=== PATIENT | female | born 1985 | race Caucasian/White ===

== ENCOUNTER 2018-01-18 02:03 | Emergency (ER) | payer BC ==
[2018-01-18] MEDS ORDERED: HYDROcodone/Acetaminophen 10/325 mg Tablet ONE (02:41)
== END 2018-01-18 02:45 | disposition home or self-care (01) ==
LOC: ERS 02:03
DX: K02.9 Dental caries, unspecified (principal); Z79.84 Long term (current) use of oral hypoglycemic drugs
CPT/HCPCS: 99282

== ENCOUNTER 2018-02-13 22:13 | Emergency (ER) | payer BC ==
[2018-02-13 22:58] LABS: #Eosinphils 0.2 thou/uL (0.0-0.7); #Lymphocytes 2.1 thou/uL (1.20-3.40); #Monocytes 0.7 thou/uL (0.11-0.59); #Neutrophils 7.7 thou/uL (1.40-6.50); %Basophils 0.4 % (0.0-1.0); %Eosinophils 1.7 % (0.0-10.0); %Lymphocytes 19.3 % (21.0-51.0); %Monocytes 6.9 % (0.0-10.0); %Neutrophils 71.7 % (42.0-75.0); Hemoglobin 12.8 g/dL (12.0-16.0); Mean Corpuscular HGB CONC 34.1 g/dL (32.0-36.0); Mean Corpuscular Volume 90.8 fL (78.0-98.0); Mean Platelet Volume 7.9 fL (7.4-10.4); Platelet Count 234 thou/uL (130-400); RBC Distribution Width 11.1 % (11.5-14.5); Red Blood Cell (RBC) Count 4.14 mill/uL (4.20-5.40); White Blood Cell (WBC) Count 10.7 thou/uL (4.8-10.8)
[2018-02-14 12:17] LABS: Bilirubin Negative (Negative); Blood, Urine Negative (Negative); Clarity CLEAR (Clear); Glucose, Urine (Dipstick) Negative (Negative); Leukocyte Negative (Negative); Nitrite Negative (Negative); Protein, Urine (Dipstick) Negative (Neg-Trace); Urobilinogen 0.2 mg/dL (0.2-1.0)
[2018-02-14 12:18] LABS: Specific Gravity, Urine 1.022 (1.002-1.036)
--- NOTE | 2018-02-14 13:59 | ULT ---
OBSTETRIC SONOGRAM PERFORMED ON AN EMERGENCY BASIS: Date: 02/14/18 Time: 0112 hours HISTORY: Early . Bleeding and pain. FINDINGS: Urinary bladder is decompressed. Endometrial cavity contains a gestational sac that has a yolk sac an d pole. Heart motion at 175 beats/minute. Measurements correlate with 7 weeks and 4 days gestat ional age. No free fluid. Good color and spectral Doppler flow within each ovary. Small follicles. IMPRESSION: Single, viable intrauterine gestation, with estimated gestational age based on today's sonogram of 7 weeks and 4 days. No evidence of complication. POS: ALEJANDRO
== END 2018-02-14 02:09 | disposition home or self-care (01) ==
LOC: ERS 22:13
DX: O20.9 Hemorrhage in early pregnancy, unspecified (principal); Z79.84 Long term (current) use of oral hypoglycemic drugs; Z79.899 Other long term (current) drug therapy; Z3A.01 Less than 8 weeks gestation of pregnancy
CPT/HCPCS: 36415; 76856; 81003; 84702; 85025; 86900; 86901

== ENCOUNTER 2018-04-27 19:50 | Emergency (ER) | payer BC | END 2018-04-27 20:44 | disposition home or self-care (01) | LOC: ERS 19:50 | DX: K02.9 Dental caries, unspecified (principal) | CPT/HCPCS: 99282 ==

== ENCOUNTER 2018-09-05 13:07 | Observation (INO) | payer BC ==
[2018-09-05 13:42] VITALS: BMI 32.1
[2018-09-05 14:00] VITALS: BP 123/74; TEMP 97.3
[2018-09-05] MEDS ORDERED: Butorphanol Tartrate 1 MG/ML VIAL ONE ×2 (16:30→18:38)
[2018-09-05] MEDS: Lactated Ringer's 1,000 ML IV SCH ×2 (16:40→18:57)
[2018-09-05] MEDS ORDERED: Tamsulosin HCl 0.4 MG CAP PO SCH (17:30)
[2018-09-05] MEDS ORDERED: Lactated Ringer's 1,000 ML IV SCH (17:30)
[2018-09-05] MEDS ORDERED: Cyclobenzaprine 10 MG TAB PO PRN (19:18)
[2018-09-05] MEDS: HYDROcodone/Acetaminophen 5/325 mg Tablet PO PRN (20:20)
[2018-09-05] MEDS ORDERED: Ondansetron PF 4 MG/2 ML Vial ONE (21:04)
[2018-09-05] MEDS ORDERED: Ondansetron PF 4 MG/2 ML Vial IVP PRN (21:33)
[2018-09-06] MEDS: HYDROcodone/Acetaminophen 5/325 mg Tablet PO PRN (00:22)
[2018-09-06] MEDS: Lactated Ringer's 1,000 ML IV SCH ×3 (01:46→08:58)
[2018-09-06 05:28] LABS: Bacteria/HPF None Seen HPF (None Seen); Hyaline Casts/LPF 4-6 HYALINE CAST LPF (0-3 Hyaline); Pathc Cast-AUWi Flag 1.63 (0-2.49); Squamous Epithelial 0-3 HPF (0-3); WBC/HPF None Seen HPF (0-3)
[2018-09-06 05:29] LABS: Bilirubin Negative (Negative); Blood, Urine Trace (Negative); Clarity Clear (Clear); Glucose, Urine (Dipstick) Negative (Negative); Leukocyte Negative (Negative); Nitrite Negative (Negative); Protein, Urine (Dipstick) Negative (Neg-Trace); Specific Gravity, Urine 1.015 (1.005-1.030); Urobilinogen 0.2 mg/dL (0.2-1.0)
[2018-09-06 05:56] LABS: #Lymphocytes 1.5 thou/uL (1.20-3.40); #Monocytes 0.6 thou/uL (0.11-0.59); #Neutrophils 5.4 thou/uL (1.40-6.50); %Eosinophils 0.5 % (0.0-10.0); %Lymphocytes 20.1 % (21.0-51.0); %Monocytes 7.8 % (0.0-10.0); %Neutrophils 71.5 % (42.0-75.0); Hemoglobin 10.9 g/dL (12.0-16.0); Mean Corpuscular HGB CONC 34.3 g/dL (32.0-36.0); Mean Corpuscular Hemoglobin 30.5 pg (27.0-31.0); Mean Corpuscular Volume 88.8 fL (78.0-98.0); Mean Platelet Volume 8.7 fL (7.4-10.4); Platelet Count 113 thou/uL (130-400); Platelet Morphology Comment Appears Decreased; RBC Distribution Width 12.5 % (11.5-14.5); RBC Morphology Normal; Red Blood Cell (RBC) Count 3.58 mill/uL (4.20-5.40); White Blood Cell (WBC) Count 7.6 thou/uL (4.8-10.8)
[2018-09-06] MEDS ORDERED: Tamsulosin HCl 0.4 MG CAP PO SCH (09:00)
== END 2018-09-06 11:30 | disposition home health service (06) ==
LOC: L&D/OP 13:07 → L&D 21:20
PROVIDERS: ADMIT Obstetrics & Gynecology; ATTEND Obstetrics & Gynecology
DX: O99.89 Other specified diseases and conditions complicating pregnancy, childbirth and the puerperium (principal); M54.5 Low back pain; O99.019 Anemia complicating pregnancy, unspecified trimester; D64.9 Anemia, unspecified
CPT/HCPCS: 36415; 81001; 85025; 96361; 96374; 99285; G0378; J0595; J2405

== ENCOUNTER 2018-09-24 07:01 | Inpatient (IN) | payer BC ==
[2018-09-24] MEDS ORDERED: Butorphanol Tartrate 1 MG/ML VIAL SLOW IVP PRN (07:39)
[2018-09-24] MEDS ORDERED: NS / Oxytocin 40 units/1000ml 1,000 ML IV PRN (07:39)
[2018-09-24] MEDS ORDERED: Lidocaine 1% (PF) 30 ML VIAL SC PRN (07:39)
[2018-09-24] MEDS ORDERED: Ibuprofen 800 MG TAB PO PRN (07:39)
[2018-09-24] MEDS ORDERED: Ondansetron PF 4 MG/2 ML Vial IVP PRN ×4 (07:39→21:39)
[2018-09-24] MEDS ORDERED: NS w/ Oxytocin 10 units 500 ML IV SCH (07:45)
[2018-09-24] MEDS: Lactated Ringer's 1,000 ML IV SCH ×3 (07:45→15:49)
[2018-09-24] MEDS ORDERED: Lactated Ringer's 1,000 ML IV SCH ×2 (07:45→21:45)
[2018-09-24 08:01] LABS: Hemoglobin 12.5 g/dL (12.0-16.0); Mean Corpuscular HGB CONC 36.3 g/dL (32.0-36.0); Mean Corpuscular Hemoglobin 31.9 pg (27.0-31.0); Mean Platelet Volume 8.6 fL (7.4-10.4); Platelet Count 156 thou/uL (130-400); RBC Distribution Width 12.6 % (11.5-14.5); White Blood Cell (WBC) Count 12.3 thou/uL (4.8-10.8)
[2018-09-24 08:11] VITALS: BMI 31.7
[2018-09-24] MEDS ORDERED: Fentanyl 4 mcg/Bup 0.1% Cadd 100 ML ONE ×2 (08:37→17:56)
[2018-09-24 08:42] LABS: HBSAg Index 0.25 S/CO (0-0.99); Hep B Surf Ag Non-Reactive S/CO (NonReactive); Syphilis Antibody Nonreactive (Nonreactive); Syphilis Antibody Index 0.03 S/CO (<1.00 Non-Reactive)
[2018-09-24] MEDS ORDERED: Acetaminophen 325 MG TAB PO PRN ×2 (09:38→21:39)
[2018-09-24] MEDS ORDERED: Promethazine HCl 25 MG/ML VIAL IM PRN ×2 (09:38→20:14)
[2018-09-24] MEDS ORDERED: diphenhydrAMINE 50 MG/ML VIAL IVP PRN ×2 (09:38→20:14)
[2018-09-24] MEDS ORDERED: ePHEDrine/0.9% NaCl/PF SYRINGE 50 mg/10 ml SLOW IVP PRN (09:38)
[2018-09-24] MEDS ORDERED: Naloxone HCl 0.4 mg/ml Vial IVP PRN ×4 (09:38→20:14)
[2018-09-24] MEDS ORDERED: Lactated Ringer's 500 ML IV PRN (09:38)
[2018-09-24] MEDS ORDERED: Eucerin (Mineral Oil/Petrolatum,White) 30 gm Jar TOP PRN (09:38)
[2018-09-24] MEDS ORDERED: Communication Order-Pharmacy FS SCH ×2 (09:45→20:15)
[2018-09-24] MEDS ORDERED: Fentanyl 4 mcg/Bupivacaine 0.1% Cassette 100 ML EPIDURAL SCH (09:45)
[2018-09-24] MEDS ORDERED: Terbutaline Sulfate 1 MG/ML VIAL ONE (15:06)
[2018-09-24] MEDS ORDERED: Ondansetron PF 4 MG/2 ML Vial ONE ×2 (15:42→20:11)
[2018-09-24] MEDS ORDERED: PROPOFOL 200 MG/20 ML VIAL ONE (15:42)
[2018-09-24] MEDS ORDERED: PHENYLEPHRINE-NS 100 MCG/ML 10 ML SYRINGE ONE ×2 (15:42→20:11)
[2018-09-24] MEDS ORDERED: Lidocaine 2% PF 5 ML VIAL ONE (15:42)
[2018-09-24] MEDS ORDERED: Ketorolac Tromethamine 30 MG/ML VIAL ONE ×2 (15:42→21:04)
[2018-09-24] MEDS ORDERED: Clindamycin/D5W 900 mg/50 ml Premix Bag ONE (18:01)
[2018-09-24] MEDS ORDERED: Terbutaline Sulfate 1 MG/ML VIAL SC SCH (18:45)
[2018-09-24] MEDS ORDERED: Bicitra 30 ML UDCUP ONE (19:20)
[2018-09-24] MEDS ORDERED: Gentamicin Sulfate 80 MG in Premix Bag 1 BAG IVPB SCH (19:30)
[2018-09-24] MEDS ORDERED: Clindamycin/D5W 300 MG/50 ML BAG IVPB SCH (19:30)
[2018-09-24] MEDS ORDERED: Lidocaine 2% 10 ML INJ ONE (19:52)
[2018-09-24] MEDS ORDERED: Oxytocin 10 UNITS/ML VIAL ONE ×2 (19:59→20:48)
[2018-09-24] MEDS ORDERED: MORPHINE 5 MG/10 ML PF VIAL ONE (19:59)
[2018-09-24] MEDS ORDERED: HYDROmorphone 2 MG/ML VIAL SLOW IVP PRN (20:14)
[2018-09-24] MEDS ORDERED: Hydrocerin (Eucerin) Cream 120 gm Jar TOP PRN (20:14)
[2018-09-24] MEDS ORDERED: Promethazine HCl 25 MG SUPP PR PRN (20:14)
[2018-09-24] MEDS ORDERED: L&D-Morphine 4 MG/ML VIAL SLOW IVP PRN (20:14)
[2018-09-24] MEDS ORDERED: Ketorolac Tromethamine 30 MG/ML VIAL IVP PRN (20:14)
[2018-09-24] MEDS ORDERED: Naloxone HCl 0.4 mg/ml Vial IV PRN (20:14)
[2018-09-24] MEDS ORDERED: Meperidine HCl/PF 25 MG/ML VIAL SLOW IVP PRN (20:14)
[2018-09-24] MEDS ORDERED: Ondansetron HCl/PF 4 MG/2 ML Vial IVP PRN (20:14)
[2018-09-24] MEDS ORDERED: Ketorolac Tromethamine 30 MG/ML VIAL IVP SCH (20:15)
[2018-09-24] MEDS ORDERED: Midazolam HCl 2 mg/2 ml Vial ONE (20:53)
[2018-09-24] MEDS ORDERED: PROPOFOL 20 ML ONE (20:55)
[2018-09-24] MEDS ORDERED: Zolpidem Tartrate 5 MG TAB PO PRN (21:39)
[2018-09-24] MEDS ORDERED: Misoprostol 200 MCG TAB PR PRN (21:39)
[2018-09-24] MEDS ORDERED: Lanolin Ointment 7 GM TUBE TOP PRN (21:39)
[2018-09-24] MEDS ORDERED: Meperidine HCl/PF 25 MG/ML VIAL IM PRN (21:39)
[2018-09-24] MEDS ORDERED: Bisacodyl 10 MG SUPP PR PRN (21:39)
[2018-09-24] MEDS ORDERED: diphenhydrAMINE 25 MG CAP PO PRN (21:39)
[2018-09-24] MEDS ORDERED: Adacel (T-DAP) 0.5 ML SYRINGE IM ONE (21:39)
[2018-09-24] MEDS ORDERED: Fentanyl 100 MCG/2 ML VIAL ONE (21:40)
[2018-09-24] MEDS ORDERED: NS / Oxytocin 40 units/1000ml 1,000 ML IV SCH (21:45)
[2018-09-24] MEDS ORDERED: Fentanyl 100 MCG/2 ML VIAL SLOW IVP SCH (22:35)
[2018-09-24] MEDS ORDERED: Acetaminophen 1,000 MG in Premix Bag 1 BAG IVPB SCH (22:45)
[2018-09-25] MEDS ORDERED: Clindamycin/D5W 900 MG in Premix Bag 1 BAG IVPB SCH (02:00)
[2018-09-25 06:38] LABS: Hemoglobin 9.7 g/dL (12.0-16.0); Mean Corpuscular HGB CONC 34.5 g/dL (32.0-36.0); Mean Corpuscular Hemoglobin 31.1 pg (27.0-31.0); Mean Corpuscular Volume 90.2 fL (78.0-98.0); Mean Platelet Volume 8.8 fL (7.4-10.4); Platelet Count 88 thou/uL (130-400); RBC Distribution Width 12.6 % (11.5-14.5); Red Blood Cell (RBC) Count 3.12 mill/uL (4.20-5.40)
[2018-09-25] MEDS: Ferrous Sulfate 325 MG TAB PO SCH ×2 (09:14→17:49)
[2018-09-25] MEDS: Prenatal Vitamin 1 TAB PO SCH (09:15)
[2018-09-25] MEDS: Docusate Calcium (SURFAK) 240 MG CAP PO SCH ×2 (09:15→19:37)
[2018-09-25] MEDS: Simethicone Chewable 80 MG TAB PO PRN (09:16)
[2018-09-25] MEDS: HYDROcodone/Acetaminophen 5/325 mg Tablet PO PRN ×3 (10:08→19:37)
[2018-09-25] MEDS: Ibuprofen 800 MG TAB PO SCH ×4 (13:13→21:25)
[2018-09-25] MEDS: Lactated Ringer's 1,000 ML IV SCH ×2 (16:33→22:34)
[2018-09-26] MEDS: Lactated Ringer's 1,000 ML IV SCH ×6 (01:45→21:25)
[2018-09-26] MEDS: HYDROcodone/Acetaminophen 5/325 mg Tablet PO PRN ×5 (05:27→21:22)
[2018-09-26] MEDS: Ibuprofen 800 MG TAB PO SCH ×3 (05:28→21:22)
[2018-09-26] MEDS: Simethicone Chewable 80 MG TAB PO PRN (05:28)
[2018-09-26 06:32] LABS: #Eosinphils 0.1 thou/uL (0.0-0.7); #Lymphocytes 1.2 thou/uL (1.20-3.40); #Monocytes 0.6 thou/uL (0.11-0.59); #Neutrophils 7.7 thou/uL (1.40-6.50); %Basophils 0.2 % (0.0-1.0); %Eosinophils 0.8 % (0.0-10.0); %Lymphocytes 12.7 % (21.0-51.0); %Monocytes 5.8 % (0.0-10.0); %Neutrophils 80.5 % (42.0-75.0); Hemoglobin 9.4 g/dL (12.0-16.0); Mean Corpuscular HGB CONC 34.5 g/dL (32.0-36.0); Mean Corpuscular Hemoglobin 31.5 pg (27.0-31.0); Mean Corpuscular Volume 91.1 fL (78.0-98.0); Mean Platelet Volume 8.7 fL (7.4-10.4); Platelet Count 101 thou/uL (130-400); RBC Distribution Width 12.7 % (11.5-14.5); Red Blood Cell (RBC) Count 2.98 mill/uL (4.20-5.40); White Blood Cell (WBC) Count 9.5 thou/uL (4.8-10.8)
[2018-09-26] MEDS: Ferrous Sulfate 325 MG TAB PO SCH ×2 (09:15→17:36)
[2018-09-26] MEDS: Docusate Calcium (SURFAK) 240 MG CAP PO SCH ×2 (09:16→21:22)
[2018-09-26] MEDS: Prenatal Vitamin 1 TAB PO SCH (09:16)
[2018-09-27] MEDS: HYDROcodone/Acetaminophen 5/325 mg Tablet PO PRN ×2 (02:57→13:27)
[2018-09-27] MEDS: Lactated Ringer's 1,000 ML IV SCH ×2 (03:49→13:36)
[2018-09-27] MEDS: Ibuprofen 800 MG TAB PO SCH ×2 (05:52→13:27)
[2018-09-27] MEDS: Docusate Calcium (SURFAK) 240 MG CAP PO SCH (08:39)
[2018-09-27] MEDS: Prenatal Vitamin 1 TAB PO SCH (08:40)
[2018-09-27] MEDS: Ferrous Sulfate 325 MG TAB PO SCH (10:07)
[2018-09-27 10:30] VITALS: BP 125/70; TEMP 98.2
--- NOTE | 2018-09-27 10:53 | OP ---
DATE OF PROCEDURE: 09/24/2018 CO-SURGEON: Lisa Lenz MD PREOPERATIVE DIAGNOSES: 1. Term intrauterine at 40 weeks. 2. Spontaneous rupture of membranes in labor. 3. Non-reassuring heart rate tracing (category III). POSTOPERATIVE DIAGNOSES: 1. Term intrauterine at 40 weeks. 2. Spontaneous rupture of membranes in labor. 3. Non-reassuring heart rate tracing (category III). PROCEDURE PERFORMED: Primary low-transverse section. ANESTHESIA: Epidural catheterization. FINDINGS: 1. Category III non-reassuring heart rate tracing with repetitive late decelerations. 2. Arrest of descent and dilatation at 6 cm dilation, 90% effacement, 0 station. 3. Vigorous male , 6 pounds and 8 ounces. Apgars were 9 and 9. 4. Normal uterus, tubes, and ovaries. COMPLICATIONS: None. SPECIMENS REMOVED: Cord and blood gas. ESTIMATED BLOOD LOSS: 700 mL (QBL equals 645 mL). INDICATIONS: Mrs. Kita Juarez is a very pleasant 33-year-old white female, 2, para 0-0-1-0, who is followed in my clinic for obstetric care. She presented to Labor and Delivery on 09/24/2018 with spontaneous rupture of membranes and early labor. At the time of arrival, she was 3 to 4 cm, 50% effaced, and -2 station. She received epidural catheterization for anesthesia. Her labor progressed to 6 cm dilation and she began to experience repetitive decelerations with several episodes of bradycardia. Initially, these resolved with conservative measures including positioning, oxygen, and fluid bolus. She subsequently progressed to 6 cm, 90% effacement, and 0 station. Later that night, she began to have a category III non-reassuring heart rate tracing and urgent delivery was called. There was a delay of approximately 50 minutes secondary to anesthesia availability. The patient had been completely counseled and her surgical disclosures were signed and placed in her chart. Questions answered to their satisfaction. DESCRIPTION OF PROCEDURE: After thorough consent and counseling, Mrs. Juarez was taken to the operating room and adequate level of anesthesia was obtained via existing epidural catheterization. The patient was urgently prepped and draped in the usual sterile fashion for abdominal surgery. A Robertson had previously been placed in the bladder, which was noted to be draining clear urine. Attention was then turned to performing the primary low-transverse section. A Pfannenstiel incision was made and carried sharply to the fascia, which was also sharply incised. The midline was identified and the rectus muscles were retracted laterally. The abdominal peritoneal cavity was entered with usual safeguard carried out. A retractor was placed and a bladder flap was created on the vesicouterine peritoneum. A bladder blade was then placed. A low-transverse incision was made on the well-developed lower uterine segment. Upon entering the amniotic sac, a scant amount of clear amniotic fluid was visualized. The was noted to be vertex presentation and the occiput transverse position, still high in the pelvis. Head was delivered and baby was bulb suctioned on the abdomen. Nuchal cord x1 was reduced. Shoulders and body were then delivered in an atraumatic fashion. The cord was doubly clamped and cut. The infant was handed to the Pediatric Team in attendance for the delivery. The infant was a vigorous viable male, weighing 6 pounds 8 ounces with Apgars of 9 and 9 obtained at one and five minutes respectively. Cord and blood gases were obtained. The placenta was manually removed from the uterus. The uterus was exteriorized and good tone was noted. The uterine cavity was cleared of any remaining clot and fluid. The low-transverse incision was closed with a running locking ligature of #1 chromic. A second imbricating layer was placed to facilitate strength and hemostasis. Several [id number] ligatures of 0 Vicryl were also placed for hemostasis in additional strength. The vesicouterine peritoneum was reapproximated to the lower segment with a running ligature of 2-0 Monocryl suture. The posterior cul-de-sac and gutters were cleared of clot and fluid. The uterus, fallopian tubes, and ovaries were inspected and noted to be normal. No pathology was identified. Seprafilm was applied to the low-transverse incision and to the anterior aspect of the uterus for adhesion prevention. The uterus was returned to the abdomen and once again, good tone hemostasis was noted. Lap, sponge, and needle counts were correct. The peritoneum was closed with a running ligature of 2-0 Vicryl suture for additional adhesion prevention measures. The rectus muscles were reapproximated in the midline with interrupted ligatures of 2-0 Vicryl and #1 chromic suture. The fascia was then closed with 2 ligatures of 0 Vicryl suture, which were tied in the midline. Good fascial integrity was noted. The incision was irrigated with copious amount of warm normal saline. Good hemostasis was obtained with Bovie cauterization. Subcutaneous tissue was closed with interrupted ligatures of 2-0 plain. The skin was closed with a subcuticular stitch of 4-0 Monocryl and dressed with Dermabond. A pressure dressing and ice packs were subsequently placed. Lap, sponge, and needle counts were correct x3. Debriefing was conducted. The patient was taken to the recovery room in good condition. Immediately following surgery, the patient and family were made aware of the surgical procedure and operative findings. Questions were answered to their satisfaction. The baby was returned to the mother shortly after delivery for [id number] and . Questions were answered to the patient and family's satisfaction. The patient and her were very appreciative of the care rendered here at [facility] this evening. Job ID: [id number]
== END 2018-09-27 14:05 | disposition home or self-care (01) | DRG 788 ==
LOC: L&D/OP 07:01 → L&D 08:00 → 3SW 09-25 00:26
PROVIDERS: ADMIT Obstetrics & Gynecology; ATTEND Obstetrics & Gynecology
PROC: 10D00Z1 Extraction of Products of Conception, Low, Open Approach (ICD-10-PCS; principal; 2018-09-27)
DX: O76 Abnormality in fetal heart rate and rhythm complicating labor and delivery (principal); O62.1 Secondary uterine inertia; Z3A.40 40 weeks gestation of pregnancy; Z37.0 Single live birth; O99.03 Anemia complicating the puerperium; D64.9 Anemia, unspecified
CPT/HCPCS: 36415; 51702; 85025; 85027; 86780; 86850; 86900; 86901; 87340; 99285; J0131; J0690; J1580; J1885; J2001; J2250; J2270; J2405; J2590; J2704; J3010; J3105; J3490

== ENCOUNTER 2018-10-04 11:50 | Emergency (ER) | payer BC ==
[2018-10-04 12:48] LABS: #Eosinphils 0.1 thou/uL (0.0-0.7); #Lymphocytes 1.7 thou/uL (1.20-3.40); #Monocytes 0.6 thou/uL (0.11-0.59); #Neutrophils 5.6 thou/uL (1.40-6.50); %Basophils 0.3 % (0.0-1.0); %Eosinophils 1.7 % (0.0-10.0); %Lymphocytes 20.9 % (21.0-51.0); %Monocytes 6.9 % (0.0-10.0); %Neutrophils 70.2 % (42.0-75.0); Hemoglobin 10.7 g/dL (12.0-16.0); Mean Corpuscular HGB CONC 34.3 g/dL (32.0-36.0); Mean Corpuscular Hemoglobin 30.6 pg (27.0-31.0); Mean Corpuscular Volume 89.3 fL (78.0-98.0); Mean Platelet Volume 7.4 fL (7.4-10.4); Platelet Count 271 thou/uL (130-400); RBC Distribution Width 12.3 % (11.5-14.5); Red Blood Cell (RBC) Count 3.48 mill/uL (4.20-5.40)
== END 2018-10-04 14:19 | disposition home or self-care (01) ==
LOC: ERS 11:50
DX: O90.0 Disruption of cesarean delivery wound (principal); Z79.1 Long term (current) use of non-steroidal anti-inflammatories (NSAID); Z79.891 Long term (current) use of opiate analgesic
CPT/HCPCS: 36415; 85025; 87070; 87077; 87205; 99283

== ENCOUNTER 2019-02-13 11:49 | Day surgery (SDC) | payer BC ==
[2019-02-12 15:54] VITALS: BMI 28.8
--- NOTE | 2019-02-12 22:37 | HP ---
HISTORY OF PRESENT ILLNESS: Kita Juarez is a 33-year-old female, has symptomatic cholelithiasis. Plan is for laparoscopic video cholecystectomy. She is allergic to penicillin. She had laboratories recently, February 02, albumin 3.8, alkaline phosphatase 160, amylase 40, total bilirubin 0.6, AST 120, GGT 126. Glucose , BUN 12, creatinine 0.9, sodium 141, potassium 4.0, chloride 104, CO2 23. White count 10, hemoglobin 12, hematocrit 35. Urinalysis unremarkable. ALLERGIES: PENICILLIN. TOBACCO: None. ALCOHOL: None. PAST SURGICAL HISTORY: , lithotripsy. PAST MEDICAL HISTORY: Urolithiasis. REVIEW OF SYSTEMS: Ten-point noncontributory. The patient was initially evaluated by ER physicians at [facility]. PHYSICAL EXAMINATION: VITAL SIGNS: Weight 143 pounds, height 4 feet 11 inches, 28 BMI. HEAD, EARS, EYES, NOSE, AND THROAT: Unremarkable. LUNGS: Clear to auscultation. CARDIAC: Regular rate and rhythm without murmur or gallop. ABDOMEN: Soft, nontender. No masses. EXTREMITIES: Unremarkable. ASSESSMENT AND PLAN: Symptomatic cholecystitis, cholelithiasis. I would recommend laparoscopic video cholecystectomy. Risks of infection, bleeding, visceral and biliary injury, open procedure were discussed. She consents, questions answered. Job ID: [id number]
[2019-02-13] MEDS ORDERED: Ketorolac Tromethamine 30 MG/ML VIAL ONE (12:24)
[2019-02-13] MEDS ORDERED: Bupivacaine HCl 0.5%/Epinephrine 1:200,000/PF 30 ml Vial ONE (12:25)
[2019-02-13] MEDS ORDERED: Levofloxacin 500 mg/D5W 100 ml Premix Bag ONE (12:25)
[2019-02-13] MEDS ORDERED: Lidocaine 2% Jelly 5 ML TUBE ONE (12:38)
[2019-02-13] MEDS ORDERED: Fentanyl 100 MCG/2 ML VIAL ONE ×2 (12:38→13:53)
[2019-02-13] MEDS ORDERED: Promethazine HCl 25 MG/ML VIAL ONE (14:26)
--- NOTE | 2019-02-13 14:41 | OP ---
DATE OF PROCEDURE: 02/13/2019 PREOPERATIVE DIAGNOSES: Chronic cholecystitis and cholelithiasis. POSTOPERATIVE DIAGNOSES: Chronic cholecystitis and cholelithiasis. PROCEDURE PERFORMED: Multiple small stones. PROCEDURE PERFORMED: Laparoscopic video cholecystectomy. ANESTHESIA: General, local 0.5% Marcaine with epinephrine 30 mL. DESCRIPTION OF PROCEDURE: The patient was taken to the operating room, where under general anesthesia, abdomen was prepared with ChloraPrep and draped in routine fashion. Local anesthetic 0.5% Marcaine with epinephrine was infiltrated in the skin and subcutaneous tissue about all port sites, total volume used 30 mL. Infraumbilical incision was made. Pneumoperitoneum to 15 mmHg was obtained with a Veress needle, replaced with a 5 port, video laparoscope inserted. Right subxiphoid incision was made and 11-port placed. Right subcostal incision was made at midclavicular entrance line. The 5 port was placed. Liver appeared to be normal fundus of the gallbladder was grasped at the cephalad, infundibulum grasped and reflected laterally. Cystic artery and duct dissected free, critical view obtained. Cystic artery and duct doubly clipped proximally and divided and gallbladder dissected free from liver bed obtaining good hemostasis prior to division of the final peritoneal attachments. Gallbladder and contents removed, submitted to Pathology. Good hemostasis was ensured with cautery. Irrigant and pneumoperitoneum were evacuated. All the instruments removed and all skin incisions were approximated with interrupted subdermal 4-0 Monocryl and [place] glue applied. Job ID: [id number]
[2019-02-13] MEDS ORDERED: HYDROcodone/Acetaminophen 5/325 mg Tablet ONE (16:31)
== END 2019-02-13 16:44 | disposition home or self-care (01) ==
LOC: SDC 11:49
PROVIDERS: ATTEND Specialist
PROC: 0FT44ZZ Resection of Gallbladder, Percutaneous Endoscopic Approach (ICD-10-PCS; principal; 2019-02-13)
DX: K80.10 Calculus of gallbladder with chronic cholecystitis without obstruction (principal); Z88.0 Allergy status to penicillin
CPT/HCPCS: 88304; J0131; J0670; J1885; J1956; J2550; J3010

== ENCOUNTER 2021-05-20 11:27 | Emergency (ER) | payer OTHER ==
[2021-05-20] MEDS ORDERED: Pantoprazole 40 MG VIAL ONE (12:06)
[2021-05-20] MEDS ORDERED: Morphine 4 MG/ML VIAL ONE (12:06)
[2021-05-20] MEDS ORDERED: Ondansetron PF 4 MG/2 ML Vial ONE (12:07)
[2021-05-20] MEDS ORDERED: Ketorolac Tromethamine 30 MG/ML VIAL ONE (12:07)
[2021-05-20 12:15] LABS: #Eosinphils 0.1 thou/uL (0.0-0.7); #Lymphocytes 1.9 thou/uL (1.20-3.40); #Monocytes 0.6 thou/uL (0.11-0.59); #Neutrophils 5.2 thou/uL (1.40-6.50); %Basophils 0.2 % (0.0-1.0); %Eosinophils 1.2 % (0.0-10.0); %Lymphocytes 24.2 % (21.0-51.0); %Neutrophils 66.4 % (42.0-75.0); Mean Corpuscular HGB CONC 35.7 g/dL (32.0-36.0); Mean Corpuscular Hemoglobin 30.5 pg (27.0-31.0); Mean Corpuscular Volume 85.4 fL (78.0-98.0); Mean Platelet Volume 7.9 fL (7.4-10.4); Platelet Count 270 thou/uL (130-400); RBC Distribution Width 11.7 % (11.5-14.5); White Blood Cell (WBC) Count 7.9 thou/uL (4.8-10.8)
[2021-05-20 12:27] LABS: BHCG - Serum Negative (NEGATIVE); Pregs Control Background? CLEAR/WHITE (CLR/WHITE); Pregs Control Bar Appear? YES (CONTROL BAR)
[2021-05-20] MEDS ORDERED: Iopamidol-370 76% 500 ML 1 ML ONE (12:29)
[2021-05-20 12:30] LABS: ALT (SGPT) 24 U/L (8-55); AST (SGOT) 47 U/L (5-34); Albumin 4.1 g/dL (3.5-5.0); Alkaline Phosphatase 211 U/L (40-110); Anion Gap 17 mmol/L (10-20); BUN (Urea Nitrogen) 10 mg/dL (7.0-18.7); Bilirubin, Total 1.1 mg/dL (0.2-1.2); Calc. Creatinine Clearance 0 mL/min (70-130); Calcium 9.3 mg/dL (7.8-10.44); Carbon Dioxide 21 mmol/L (22-29); Chloride 106 mmol/L (98-107); Globulin 3.3 g/dL (2.4-3.5); Glucose 130 mg/dL (70-105); Lipase 26 U/L (8-78); Potassium 3.2 mmol/L (3.5-5.1); Protein, Total 7.4 g/dL (6.0-8.3); Sodium 141 mmol/L (136-145)
== END 2021-05-20 15:13 | disposition home or self-care (01) ==
LOC: ERS 11:27
DX: R10.13 Epigastric pain (principal)
CPT/HCPCS: 71045; 71275; 80053; 83690; 84484; 84703; 85025; 85379; 96374; 96375; C9113; J1885; J2270; J2405; Q9967

== ENCOUNTER 2022-01-30 02:06 | Observation (INO) | payer OTHER ==
[2022-01-30 02:22] VITALS: BMI 28.6
[2022-01-30] MEDS ORDERED: Morphine 4 MG/ML VIAL SLOW IVP PRN (02:25)
[2022-01-30] MEDS ORDERED: Ketorolac Tromethamine 30 MG/ML VIAL IVP SCH (02:30)
[2022-01-30] MEDS ORDERED: Piperacillin/Tazobactam 3.375 GM in Sodium Chloride 0.9% 100 ML IVPB SCH ×2 (02:30→04:00)
[2022-01-30] MEDS: Sodium Chloride 0.9% 1,000 ML IV SCH ×2 (02:37→10:52)
[2022-01-30] MEDS ORDERED: metroNIDAZOLE 500 MG in Premix Bag 1 BAG IVPB SCH (06:00)
[2022-01-30] MEDS ORDERED: Ketorolac Tromethamine 30 MG/ML VIAL IVP PRN ×2 (08:00→12:49)
[2022-01-30] MEDS ORDERED: fentaNYL Citrate/PF 100 MCG/2 ML SYRINGE ONE (10:39)
[2022-01-30] MEDS ORDERED: Scopolamine 1.5 mg/72 hour Patch TD SCH (11:00)
[2022-01-30] MEDS ORDERED: Bupivacaine/Epinephrine 0.25% 30 ML VIAL ONE (11:44)
[2022-01-30] MEDS ORDERED: Bupivacaine PF 0.5% 30 ML VIAL ONE (11:45)
[2022-01-30] MEDS ORDERED: Lidocaine 1% MPF 2 ML VIAL ONE (12:06)
[2022-01-30] MEDS ORDERED: Glycopyrrolate 0.2 MG/ML 5 ML SYRINGE ONE (12:06)
[2022-01-30] MEDS ORDERED: PROPOFOL 200 MG/20 ML VIAL ONE (12:06)
[2022-01-30] MEDS ORDERED: Rocuronium Bromide 10 MG/ML (10ML VIAL) ONE (12:06)
[2022-01-30] MEDS ORDERED: Ondansetron PF 4 MG/2 ML Vial ONE (12:06)
[2022-01-30] MEDS ORDERED: Dexamethasone 20 MG/5 ML VIAL ONE (12:06)
[2022-01-30] MEDS ORDERED: HYDROmorphone 2 MG/ML VIAL SLOW IVP PRN (12:49)
[2022-01-30] MEDS ORDERED: Promethazine HCl 25 MG/ML VIAL IVPB PRN (12:49)
[2022-01-30] MEDS ORDERED: Ondansetron HCl/PF 4 MG/2 ML Vial IVP PRN (12:49)
[2022-01-30] MEDS ORDERED: Promethazine HCl 25 MG/ML VIAL IM PRN (12:49)
[2022-01-30] MEDS ORDERED: Morphine Sulfate 2 MG/ML SYRINGE SLOW IVP PRN (12:49)
[2022-01-30] MEDS ORDERED: Ketorolac Tromethamine 30 MG/ML VIAL ONE (12:50)
[2022-01-30] MEDS ORDERED: Ibuprofen 600 MG TAB PO PRN (13:02)
[2022-01-30] MEDS ORDERED: traMADol HCl 50 MG TAB PO PRN (13:02)
[2022-01-30] MEDS ORDERED: Acetaminophen 500 MG TAB PO PRN (13:02)
[2022-01-30] MEDS ORDERED: Fentanyl 100 MCG/2 ML VIAL ONE (13:02)
[2022-01-30] MEDS ORDERED: Acetaminophen 500 MG TAB PO SCH (13:15)
[2022-01-30 16:34] VITALS: BP 117/76; TEMP 98
== END 2022-01-30 16:58 | disposition home or self-care (01) ==
LOC: SURG A 02:06
PROVIDERS: ADMIT Specialist; ATTEND Specialist
PROC: 0DTJ4ZZ Resection of Appendix, Percutaneous Endoscopic Approach (ICD-10-PCS; principal; 2022-01-30)
DX: K35.30 Acute appendicitis with localized peritonitis, without perforation or gangrene (principal); K38.8 Other specified diseases of appendix; Z88.0 Allergy status to penicillin
CPT/HCPCS: 88304; 96374; 96375; A4649; G0378; J1100; J1885; J1956; J2405; J2543; J2704; J3010; J3490; J7050; S0020

== ENCOUNTER 2024-03-14 22:28 | Emergency (ER) | payer MEDICAID, OTHER, SELFPAY ==
[2024-03-14 23:06] LABS: Bacteria/HPF None Seen HPF (None Seen); Bilirubin Negative (Negative); Blood, Urine Negative (Negative); CAUTI Indications for Culture Pregnancy; Calcium Oxalate Crystals Rare HPF (None Seen); Clarity Clear (Clear); Glucose, Urine (Dipstick) Normal (Negative); Ketone, Urine Negative (Negative); Leukocyte Negative Leu/uL (Negative); Nitrite Negative (Negative); Protein, Urine (Dipstick) Negative (Neg-Trace); RBC/HPF 0-3 HPF (0-3); Specific Gravity, Urine 1.017 (1.002-1.036); Squamous Epithelial 0-3 HPF (0-3); Urobilinogen Normal mg/dL (Less than 2); WBC/HPF 0-3 HPF (0-3); pH, Urine 6.5 (5.0-9.0)
[2024-03-14 23:09] LABS: Urine Culture Reflex No No; Urine Culture Reflex Yes Yes
== END 2024-03-15 01:12 | disposition home or self-care (01) ==
LOC: ERS 22:28
DX: O36.8120 Decreased fetal movements, second trimester, not applicable or unspecified (principal); Z3A.22 22 weeks gestation of pregnancy
CPT/HCPCS: 76815; 81001; 87086

== ENCOUNTER 2024-06-03 18:40 | Emergency (ER) | payer OTHER ==
[2024-06-03 19:47] LABS: #Basophils Less than 0.03 10x3/uL (0.0-0.2); %Basophils 0.2 % (0.0-1.0); %Eosinophils 3.5 % (0.0-10.0); %Lymphocytes 16.7 % (21.0-51.0); %Monocytes 10.4 % (0.0-10.0); %Neutrophils 68.8 % (42.0-75.0); Hematocrit 26.4 % (36.0-47.0); Hemoglobin 8.8 g/dL (12.0-16.0); Mean Corpuscular HGB CONC 33.3 g/dL (32.0-36.0); Mean Corpuscular Hemoglobin 28.9 pg (27.0-31.0); Mean Corpuscular Volume 86.8 fL (78.0-98.0); Mean Platelet Volume 10.7 fL (7.4-10.4); Platelet Count 212 10x3/uL (130-400); Red Blood Cell (RBC) Count 3.04 mill/uL (4.20-5.40)
[2024-06-03 20:00] LABS: Bilirubin Negative (Negative); Blood, Urine 2+ (Negative); CAUTI Indications for Culture Pelvic or flank pain; Clarity Clear (Clear); Glucose, Urine (Dipstick) 50 mg/dL (Negative); Ketone, Urine Trace mg/dL (Negative); Leukocyte Negative Leu/uL (Negative); Nitrite Negative (Negative); Protein, Urine (Dipstick) 30 mg/dL (Neg-Trace); RBC/HPF 21-50 HPF (0-3); Specific Gravity, Urine 1.037 (1.002-1.036)
[2024-06-03 20:04] LABS: Bacteria/HPF Rare-Few HPF (None Seen)
[2024-06-03 20:05] LABS: ALT (SGPT) Less than 7 U/L (Less than 34); AST (SGOT) 20 U/L (11-34); Albumin 2.6 g/dL (3.1-4.5); Alkaline Phosphatase 142 U/L (40-110); Anion Gap 12 mmol/L (10-20); BUN (Urea Nitrogen) 10 mg/dL (7.0-18.7); Bilirubin, Total 0.2 mg/dL (0.3-1.2); Calc. Creatinine Clearance 0 mL/min (70-130); Calcium 8.7 mg/dL (7.8-10.44); Carbon Dioxide 19 mmol/L (22-29); Chloride 110 mmol/L (98-107); Estimated GFR 117; Globulin 3.6 g/dL (2.4-3.5); Glucose 87 mg/dL (70-105); Potassium 3.7 mmol/L (3.5-5.1); Protein, Total 6.2 g/dL (6.0-8.3); Sodium 137 mmol/L (136-145)
[2024-06-03 20:05] LABS: Urine Culture Reflex No No
[2024-06-03] MEDS ORDERED: Ketorolac Tromethamine 30 MG (1 mL) VIAL ONE (22:13)
== END 2024-06-03 21:33 | disposition home or self-care (01) ==
LOC: ERS 18:40
DX: N20.0 Calculus of kidney (principal)
CPT/HCPCS: 36415; 76770; 80053; 81001; 85025; 87086; J1885

== ENCOUNTER 2024-06-14 12:03 | Emergency (ER) | payer OTHER, SELFPAY | END 2024-06-14 13:51 | disposition home or self-care (01) | LOC: ERS 12:03 | DX: O99.511 Diseases of the respiratory system complicating pregnancy, first trimester (principal); J11.1 Influenza due to unidentified influenza virus with other respiratory manifestations | CPT/HCPCS: 87428; 99284 ==